=== PATIENT | male | born 1940 | race Caucasian/White ===

== ENCOUNTER 2018-05-09 17:03 | Emergency (ER) | payer MEDICARE, OTHER ==
[~2018-05-09] VITALS: Ht 177.8 cm; Wt 104.3 kg
[~2018-05-09 17:03] MED LIST: HYOS0.1217 PO; PNT40TEC PO
--- OUTSIDE RECORDS SUMMARY | 2018-05-09 17:10 | XMS REPORT | Continuity of Care Document ---
Author Author [facility] Organization [facility] Address Unknown Phone Unavailable Allergies Active Description Code Type Severity Reaction Onset Reported/Identified Relationship to Patient Clinical Status Yes No Known Drug Allergies [id number] Drug Allergy Unknown N/A 11/05/2014 Medications There is no data. Problems Date Dx Coded Attending Type Code Diagnosis Diagnosed By 11/05/2014 CAROLANN ROSE DO Ot 787.3 11/05/2014 CAROLANN ROSE DO Ot 789.00 11/05/2014 CAROLANN ROSE DO Ot 790.5 11/06/2014 PATITO CARRASQUILLO DO Ot 079.99 11/06/2014 PATITO CARRASQUILLO DO Ot 780.60 Procedures There is no data. Results There is no data. Encounters ACCT No. Visit Date/Time Discharge Status Pt. Type Provider Facility Loc./Unit Complaint [id number] 11/05/2014 21:35:00 11/06/2014 00:56:00 DIS Emergency PATITO CARRASQUILLO DO [facility] ER [id number] 11/05/2014 14:48:00 11/05/2014 17:12:00 DIS Emergency CAROLANN ROSE DO [facility] ER
[2018-05-09] MEDS ORDERED: TETANUS,DIPTH,PERTUSS P/F (BOOSTRIX) 0.5 ML VIAL IM ONE (17:30)
--- NOTE | 2018-05-09 17:39 | ED Lower Extremity ---
General Chief Complaint: Lower Extremity Stated Complaint: L FOOT TURNING BLACK AND BLUE Nursing Triage Note: AMB TO ROOM REPORTS 3 DAYS AGO DROPPED APX 50LB PIECE OF METAL ON L FOOT BRUISNG AND SWELLING NOTE. Nursing Sepsis Screen: No Definite Risk Source: patient Exam Limitations: no limitations History of Present Illness Date Seen by Provider: May 09, 2018 Time Seen by Provider: 17:15 Initial Comments Patient is a 78-year-old male who presents to the emergency room with complaints of left foot pain, swelling, bruising. He reports that 3 days ago he dropped a 50 pound beam on his foot and is concerned with the bruising. He also has a healing laceration to his right index finger from 10 days ago that he would like a tetanus shot for. He does not have a primary care provider. He ambulated without difficulty. Onset: other (3 days ago) Severity: mild Pain/Injury Location: left foot Method of Injury: direct blow Allergies and Home Medications Allergies Coded Allergies: No Known Drug Allergies (Unverified , 11/05/14) Patient Home Medication List Home Medication List Reviewed: Yes Review of Systems Constitutional: no symptoms reported, see HPI Musculoskeletal: see HPI, joint pain (left foot) Skin: see HPI, other (brusing to left foot) All Other Systems Reviewed Negative Unless Noted: Yes Past Tkybibv-Lkjlqo-Fgdfxg Hx Past Med/Social Hx: Reviewed Nursing Past Med/Soc Hx Patient Social History Alcohol Use: Denies Use Recreational Drug Use: No Smoking Status: Never a Smoker Recent Foreign Travel: No Contact w/Someone Who Travel: No Recent Infectious Disease Expo: No Past Medical History Surgeries: Yes Adenoidectomy, Tonsillectomy Respiratory: No Cardiac: No Neurological: No Gastrointestinal: No Musculoskeletal: Yes (RIB FRACTURES) Fractures Endocrine: No Cancer: No Psychosocial: No Blood Disorders: No Family Medical History Reviewed Nursing Family Hx Physical Exam Vital Signs Vital Signs - First Documented 05/09/18 17:08 Temp 99.0 Pulse 79 Resp 18 B/P (MAP) 147/81 (103) Pulse Ox 6 O2 Delivery Room Air Capillary Refill : Less Than 3 Seconds Height, Weight, BMI Height: 5'10.00" Weight: 230lbs. oz. 104.874462gj; BMI Method:Stated General Appearance: WD/WN, no apparent distress Neck: non-tender, full range of motion, supple, normal inspection Cardiovascular: normal peripheral pulses, regular rate, rhythm, no edema, no gallop, no JVD, no murmur Respiratory: chest non-tender, lungs clear, normal breath sounds, no respiratory distress, no accessory muscle use Feet: right foot non-tender, right foot normal inspection, right foot normal range of motion, right foot no evidence of injury; left foot ecchymosis (dorsal surface), left foot pain, left foot soft tissue tenderness Neurologic/Tendon: normal sensation, normal motor functions, normal tendon functions, responds to pain, no evidence tendon injury Neurologic/Psychiatric: alert, normal mood/affect, oriented x 3 Skin: normal color, warm/dry normal distal pulses and capillary refill Progress/Results/Core Measures Results/Orders My Orders Orders - TRACEY LIEBERMAN Foot, Left, 3 Views (05/09/18 17:28) Dipht,Pertuss(Acell),Tet Adult (Boostrix (05/09/18 17:30) Medications Given in ED Current Medications Medications Dose Ordered Sig/Laron Route Start Time Stop Time Status Last Admin Dose Admin Diphtheria/ Tetanus/Acell Pertussis 0.5 ml ONCE ONCE IM 05/09/18 17:30 05/09/18 17:31 DC 05/09/18 17:36 0.5 ML Vital Signs/I&O 05/09/18 05/09/18 17:08 18:18 Temp 99.0 Pulse 79 79 Resp 18 18 B/P (MAP) 147/81 (103) 147/81 (103) Pulse Ox 6 6 O2 Delivery Room Air Blood Pressure Mean: 103 Progress Progress Note : Time: 18:07 Progress Note I have seen and evaluated the patient. He also reports that he's been having some nasal congestion and uses Afrin and Vicks vapor rub daily for control. He asked if there is anything else he can use for nasal congestion I informed him that ogwd-mra-kgqcbpu Mucinex may be beneficial. I've informed him of his normal imaging studies. He agrees with plans of care, plans were discharged, return precautions were given. Diagnostic Imaging Diagonstic Imaging: Xray Plain Films/CT/US/NM/MRI: other (foot) Comments NAME: KARIE SMYTH [facility] REC#: [id number] PHYSICIAN: TRACEY LIEBERMAN [facility] CC: TRACEY LIEBERMAN; YARELI LEMUS MD Page 1 of 1 RADIOLOGY REPORT [facility]. [place], [place] CC: TRACEY LIEBERMAN; YARELI LEMUS MD Page 1 of 1 RADIOLOGY REPORT NAME: KARIE SMYTH [facility] REC#: [id number] PT STATUS: DEP ER : 1940 PHYSICIAN: TRACEY LIEBERMAN CLINICAL PHARMACOLOGIST ADMIT DATE: 05/09/18/ER Signed Date of Exam: 05/09/18 FOOT, LEFT, 3 VIEWS INDICATION: Dropped a large piece of steel on foot. Second metacarpal swelling and bruising. EXAMINATION: Left foot 05/09/2018 FINDINGS: Three views of the foot Diffuse soft tissue swelling along the dorsum of the midfoot noted. There is first metatarsophalangeal joint space narrowing and spurring with subchondral cystic change. No dislocations, no fractures. IMPRESSION: Soft tissue abnormality. No acute fractures. Chronic changes. Dictated by: Dictated on workstation # [id number] Dict: 05/09/181753 Trans: 05/09/181834 Interpreted by: YARELI LEMUS MD Electronically signed by: YARELI LEMUS MD 05/09/181834 Reviewed: Reviewed by Me Departure Impression Primary Impression: Contusion of left foot Disposition: 01 HOME, SELF-CARE Condition: Stable/Unchanged Departure-Patient Inst. Decision time for Depature: 18:08 Referrals: NO,LOCAL PHYSICIAN (PCP) Primary Care Physician Patient Instructions: Contusion (DC) Add. Discharge Instructions: Ibuprofen and Tylenol as directed by the bottle for pain relief. Ice to the sore areas at 20 minute intervals. You may use the Afrin, Mucinex, and Vicks VapoRub for nasal congestion relief. Return back to the emergency room for any worsening symptoms or concerns as needed. Follow-up with a regular doctor as needed. All discharge instructions reviewed with patient and/or family. Voiced understanding. TRACEY LIEBERMAN May 09, 2018 17:39
--- NOTE | 2018-05-09 18:03 | Diagnostic Imaging Report ---
INDICATION: Dropped a large piece of steel on foot. Second metacarpal swelling and bruising. EXAMINATION: Left foot 05/09/2018 FINDINGS: Three views of the foot Diffuse soft tissue swelling along the dorsum of the midfoot noted. There is first metatarsophalangeal joint space narrowing and spurring with subchondral cystic change. No dislocations, no fractures. IMPRESSION: Soft tissue abnormality. No acute fractures. Chronic changes. Dictated by: Dictated on workstation # [id number]
[2018-05-09 18:18] VITALS: BP 147/81
== END 2018-05-09 18:24 | disposition home or self-care (01) ==
LOC: EDUNIT# 17:03 → ER 17:05
DX: S90.32XA Contusion of left foot, initial encounter (principal); S61.201D Unspecified open wound of left index finger without damage to nail, subsequent encounter; Z90.89 Acquired absence of other organs; Z23 Encounter for immunization; W20.8XXA Other cause of strike by thrown, projected or falling object, initial encounter; X58.XXXD Exposure to other specified factors, subsequent encounter
CPT/HCPCS: 73630; 90715

== ENCOUNTER → 2022-04-14 | Outpatient (CLI) | payer MEDICARE, OTHER ==
[~2022-04-14] MED LIST changes: +CATHETER FLUSH 10 ML SYR IVP PRN; +REGADENOSON 0.4 MG/5 ML SYR (LEXISCAN) IV ONE
[2022-04-14 12:56] VITALS: BP 166/82
--- NOTE | 2022-04-16 09:35 | STRESS TEST ---
DATE OF SERVICE: 04/14/2022 RESTING AND POST REGADENOSON TECHNETIUM-99M TETROFOSMIN SPECT CT IMAGING ORDERING PHYSICIAN: Dr. Walker. CLINICAL DIAGNOSIS: Coronary artery disease. Baseline images were carried out after injection of 10.3 mCi of technetium-99m Tetrofosmin. This was followed by 0.4 mg regadenoson and 30.1 mCi of technetium-99m Tetrofosmin for stress imaging. The patient noted some shortness of breath following regadenoson infusion, which resolved in a few minutes. Review of images at rest and following stress indicates a small, transient anteroapical perfusion defect. Gated images show normal global left ventricular systolic function with normal regional wall motion. Left ventricular ejection fraction is calculated to be 54%. CONCLUSIONS: 1. The study is suggestive of a small amount of anteroapical ischemia. 2. Normal regional wall motion. 3. Normal global left ventricular systolic function with a calculated ejection fraction of 54%. Job ID: [id number] DocumentID: [id number] Dictated Date: 04/16/2022 09:08:44 Package Checker Date: 04/16/2022 09:34:21 Dictated By: JAIME WALKER MD, MA, FACP, FACC,
== END ==
LOC: CARD 10:00
PROVIDERS: ATTEND Internal Medicine Cardiovascular Disease
DX: I25.10 Atherosclerotic heart disease of native coronary artery without angina pectoris (principal)
CPT/HCPCS: 78452; 93017; A9502; C8929; 93306

== ENCOUNTER → 2022-12-03 | Outpatient (CLI) | payer MEDICARE, OTHER ==
[~2022-12-03] MED LIST changes: -REGADENOSON 0.4 MG/5 ML SYR (LEXISCAN) IV ONE
--- NOTE | 2022-12-03 14:05 | Diagnostic Imaging Report ---
INDICATION: Initial staging prostate carcinoma. Patient was administered 6.1 mCi of F-18 Pylarify in the left forearm and PET imaging was performed from the top of skull to mid thighs. Noncontrast CT was also performed for attenuation correction and anatomic correlation. No prior studies are available for comparison. A physiologic activity within the lacrimal and salivary glands are noted. No mediastinal or hilar uptake is seen. No pulmonary parenchymal uptake is detected. There is physiologic activity in the abdomen and pelvis. No suspicious lymphadenopathy is identified. There are several foci of uptake within the prostate gland. No other suspicious areas of uptake are identified. IMPRESSION: There is several small foci of uptake within the prostate gland which appears enlarged. The study is otherwise unremarkable. Dictated by: Dictated on workstation # [id number]
== END ==
LOC: RAD 09:19
PROVIDERS: ATTEND Radiology Radiation Oncology
DX: C61 Malignant neoplasm of prostate (principal)
CPT/HCPCS: 78815; A9595

== ENCOUNTER 2022-12-09 14:12 | Outpatient (RCR) | payer MEDICARE, OTHER ==
[~2022-12-09 14:12] MED LIST changes: -CATHETER FLUSH 10 ML SYR IVP PRN
[2022-12-09] MEDS ORDERED: LEUPROLIDE 22.5 MG SYRINGE (ELIGARD) SQ SCH (15:00)
== END 2022-12-18 | disposition home or self-care (01) ==
LOC: ONC 14:12
PROVIDERS: ATTEND Radiology Radiation Oncology
DX: C61 Malignant neoplasm of prostate (principal)
CPT/HCPCS: 84153; 84403; G0463; 36415; 96402; 99205

== ENCOUNTER → 2023-03-08 | Outpatient (CLI) | payer MEDICARE, OTHER | LOC: ONC 15:49 | PROVIDERS: ATTEND Internal Medicine Hematology & Oncology | DX: C61 Malignant neoplasm of prostate (principal) | CPT/HCPCS: 36415; 84153 ==

== ENCOUNTER → 2023-03-10 | Outpatient (CLI) | payer MEDICARE, OTHER ==
[~2023-03-10] MED LIST changes: +LEUPROLIDE 22.5 MG SYRINGE (ELIGARD) SQ SCH
== END ==
LOC: ONC 12:57
PROVIDERS: ATTEND Internal Medicine Hematology & Oncology
DX: Z51.11 Encounter for antineoplastic chemotherapy (principal); C61 Malignant neoplasm of prostate; I10 Essential (primary) hypertension; I25.10 Atherosclerotic heart disease of native coronary artery without angina pectoris
CPT/HCPCS: 96402; G0463; 99214

== ENCOUNTER 2023-03-24 05:39 | Outpatient (CLI) | payer MEDICARE, OTHER ==
[~2023-03-24] VITALS: Ht 177.8 cm; Wt 102.5 kg
[~2023-03-24 05:39] MED LIST changes: -LEUPROLIDE 22.5 MG SYRINGE (ELIGARD) SQ SCH
[2023-03-24] MEDS ORDERED: ASPI-808 PO ×2 (10:06)
[2023-03-24] MEDS ORDERED: MTP25TSR PO ×2 (10:06)
[2023-03-24] MEDS ORDERED: LOSA50TA63 PO ×2 (10:06)
[2023-03-24] MEDS ORDERED: LEUP22.56 SQ ×2 (10:06)
[2023-03-24] MEDS ORDERED: MULT-593 PO ×2 (10:06)
[2023-03-24] MEDS ORDERED: TMSL.4C PO ×2 (10:06)
[2023-03-24] MEDS ORDERED: VENL75CA93 PO ×2 (10:06)
== END 2023-03-24 10:06 | disposition home or self-care (01) ==
LOC: PREOP 05:39
PROVIDERS: ATTEND Radiology Radiation Oncology
DX: Z01.818 Encounter for other preprocedural examination (principal)

== ENCOUNTER 2023-03-31 08:26 | Day surgery (SDC) | payer MEDICARE, OTHER ==
[~2023-03-31] VITALS: Ht 177.8 cm; Wt 102.5 kg
[2023-03-31] VITALS (9 sets, daily range): BP systolic 153–175; BP diastolic 82–96
[~2023-03-31 08:26] MED LIST changes: +ASPI-808 PO; +LEUP22.56 SQ; +LOSA50TA63 PO; +MTP25TSR PO; +MULT-593 PO; +TMSL.4C PO; +VENL75CA93 PO
--- NOTE | 2023-03-31 09:16 | Progress Note-Pre Operative ---
Pre-Operative Progress Note Date of Available H&P: Mar 24, 2023 Date H&P Reviewed: Mar 31, 2023 Time H&P Reviewed: 09:13 History & Physical: H&P Reviewed, Patient Examed Changes from last HP N/A Pre-Operative Diagnosis: Prostate cancer cT2a, PSA 50.4, Lupe 6 MAHAMED HERNANDEZ MD Mar 31, 2023 09:16
--- NOTE | 2023-03-31 09:21 | Discharge Inst-Simple/Standard ---
Discharge Inst-Standard Reconcile Patient Problems Problems Reviewed?: Yes Discharge Medications New, Converted or Re-Newed RX: Other (Patient has antibiotic at home.) Patient Instructions/Follow Up Plan of Care/Instructions/FU: Treatment planning ct scan at [facility] cancer [facility] 04/14/23 at 10:00 a.m. Patient given oral contrast and instructed to drink 1/2 bottle at 9:[address] scan simulation. Activity as Tolerated: Yes Discharge Diet: No Restrictions MAHAMED HERNANDEZ MD Mar 31, 2023 09:21
[2023-03-31] MEDS: LACTATED RINGERS 1,000 ML 1,000 ML IV PRN ×2 (09:26→11:50)
[2023-03-31] MEDS ORDERED: SEVOFLURANE (ULTANE) 15 ML INHAL SOLN ONE ×2 (10:11→11:06)
[2023-03-31] MEDS ORDERED: proPOfol INJECTION 200 MG/20 ML VIAL IV ONE (10:11)
[2023-03-31] MEDS ORDERED: fentaNYL INJECTION 100 MCG/2 ML VIAL ONE (10:11)
[2023-03-31] MEDS ORDERED: ONDANSETRON INJECTION 4 MG/2 ML (SDV) ONE (10:11)
[2023-03-31] MEDS ORDERED: LIDOCAINE PF 2% 5 ML VIAL ONE (10:11)
--- NOTE | 2023-03-31 11:29 | Progress Note-Post Operative ---
Post-Operative Progess Note Surgeon (s)/Test Manager (s) Surgeon MAHAMED HERNANDEZ MD Test Manager: N/A Pre-Operative Diagnosis Prostate cancer cT2a, PSA 50.4, Lupe 6 Post-Operative Diagnosis Same as pre-op Procedure & Operative Findings Date of Procedure 03/31/23 Procedure Performed/Findings (1) Placement of fiducial gold seed markers under ultrasound guidance (2) Injection of biodegradable hydrogel prostate-rectal spacer utilizing the Ouroboros Tee system under ultrasound guidance Anesthesia Type General Estimated Blood Loss Estimated blood loss (mL): Minimal Specimens/Packing Specimens Removed N/A Packing: None MAHAMED HERNANDEZ MD Mar 31, 2023 11:29
[2023-03-31] MEDS ORDERED: fentaNYL INJECTION 100 MCG/2 ML VIAL IVP ONE (11:30)
[2023-03-31] MEDS ORDERED: ONDANSETRON INJECTION 4 MG/2 ML (SDV) IVP PRN (11:30)
== END 2023-03-31 13:00 | disposition home or self-care (01) ==
LOC: SDC 08:26
PROVIDERS: ATTEND Radiology Radiation Oncology
DX: C61 Malignant neoplasm of prostate (principal); E66.9 Obesity, unspecified; Z68.32 Body mass index [BMI] 32.0-32.9, adult
CPT/HCPCS: 55874; 55876; 87081; A4648; C1889

== ENCOUNTER 2023-04-14 10:04 | Outpatient (RCR) | payer MEDICARE, OTHER | END 2023-04-20 | disposition home or self-care (01) | LOC: ONC 10:04 | PROVIDERS: ATTEND Radiology Radiation Oncology | DX: Z51.0 Encounter for antineoplastic radiation therapy (principal); C61 Malignant neoplasm of prostate; I10 Essential (primary) hypertension | CPT/HCPCS: 77300; 77301; 77334; 77338 ==

== ENCOUNTER 2023-05-12 13:01 | Emergency (ER) | payer MEDICARE, OTHER ==
[~2023-05-12] VITALS: Ht 177 cm; Wt 100.0 kg
--- NOTE | 2023-05-12 14:47 | ED General ---
General Chief Complaint: Skin/Wound Problems Stated Complaint: POST-RADIATION THERAPY SKIN ISSUE Nursing Triage Note: PT IS GETTING RADIATION 5 DAYS A WEEK FOR PROSTATE CA. CC OF ITCHY SKIN ON THE POSTERIOR RT LEG, BACK AND STOMACH. PT DID HAVE FLUID TAKEN OFF OF RT LUNG ON 05/10. THERAPY [facility] DONE [facility]. DR LINTON AND MIRTHA DID NOT THINK THIS HAD ANYTHING TO DO WITH RADIATION. SWELLING IN LT HAND Source of Information: Patient Exam Limitations: No Limitations History of Present Illness Date Seen by Provider: May 12, 2023 Time Seen by Provider: 14:28 Initial Comments This 83-year-old gentleman presents to the emergency room with concerns about a rash that developed 1 to 2 weeks ago. It is pruritic and hive-like. Lesions appear in a target or horseshoe pattern and are scattered throughout the face, body, and extremities. He has intermittent swelling associated with patches of the rash, especially on the left hand. He is presently receiving treatment for prostate cancer. Dr. Linton is managing his radiation therapy. Dr. Shannon and is his medical oncologist. His primary care provider is Dr. Smith. He was referred to the emergency room from one of the outpatient providers. He denies starting any new medications or having any recent acute illness. He has not tried any antihistamine therapies. Rash appears to have the pattern and clinical course of erythema multiforme. His medications were reviewed during history. Venlafaxine and Flomax have both have listed adverse effects of erythema multiforme. Allergies and Home Medications Allergies Coded Allergies: No Known Drug Allergies (Unverified , 03/24/23) Patient Home Medication List Home Medication List Reviewed: Yes Acyclovir (Acyclovir) 400 Mg Tablet, 400 MG PO BID Prescribed by: MARY GLEASON on 05/12/23 1515 Aspirin (Aspirin) 325 Mg Tablet, 325 MG PO DAILY, (Reported) Entered as Reported by: Debra Bauer on 03/24/23 1006 Famotidine (Pepcid) 20 Mg Tablet, 20 MG PO BID Prescribed by: MARY GLEASON on 05/12/23 1515 Leuprolide Acetate (Eligard) 22.5 Mg (3 Month) Syringe, 22.5 MG SQ EVERY 3 MONTHS, (Reported) Entered as Reported by: Debra Bauer on 03/24/23 1006 Loratadine (Loratadine) 10 Mg Tablet, 10 MG PO DAILY Prescribed by: MARY GLEASON on 05/12/23 1515 Losartan Potassium (Losartan Potassium) 50 Mg Tablet, 50 MG PO DAILY, (Reported) Entered as Reported by: Debra Bauer on 03/24/23 1006 Metoprolol Succinate (Metoprolol Succinate) 25 Mg Tab.er.24h, 25 MG PO HS, (Reported) Entered as Reported by: Debra Bauer on 03/24/23 1006 Multivitamin with Minerals (Multiple Vitamin) 1 Each Tablet, 1 EACH PO DAILY, (Reported) Entered as Reported by: Debra Bauer on 03/24/23 1006 Tamsulosin HCl (Flomax) 0.4 Mg Cap, 0.4 MG PO DAILY, (Reported) Entered as Reported by: Debra Bauer on 03/24/23 100 Venlafaxine HCl (Venlafaxine HCl ER) 75 Mg Cap.er.24h, 75 MG PO HS, (Reported) Entered as Reported by: Debra Bauer on 03/24/23 1006 Review of Systems Review of Systems Constitutional: no symptoms reported EENTM: no symptoms reported Respiratory: no symptoms reported Cardiovascular: no symptoms reported Gastrointestinal: no symptoms reported Genitourinary: see HPI Musculoskeletal: no symptoms reported Skin: see HPI Psychiatric/Neurological: No Symptoms Reported Hematologic/Lymphatic: See HPI Immunological/Allergic: see HPI Past Ezqqydm-Bsayic-Sihnho Hx Patient Social History Tobacco Use?: No Substance use?: No Alcohol Use?: No Immunizations Up To Date Third COVID19 Vaccination Date: YES Seasonal Allergies Seasonal Allergies: Yes Past Medical History Surgery/Hospitalization HX: PROSTATE CA, HTN Surgeries: Yes Adenoidectomy, Tonsillectomy Respiratory: No Currently Using CPAP: No Currently Using BIPAP: No Cardiac: Yes High Cholesterol, Hypertension, Irregular Heartbeat Neurological: No Sexually Transmitted Disease: No Genitourinary: Yes Benign Prostatic Hyperpl Gastrointestinal: No Musculoskeletal: Yes (RIB FRACTURES) Fractures Endocrine: No HEENT: Yes Cataract, Tinnitis Loss of Vision: Denies Hearing Impairment: Hard of Hearing, Bilateral Hearing Aide Cancer: Yes Prostate Did You Recieve Any Treatments: No Psychosocial: No Integumentary: No Blood Disorders: No Adverse Reaction/Blood Tranf: No Physical Exam Vital Signs Vital Signs - First Documented 05/12/23 14:01 Temp 37.0 Pulse 82 Resp 18 B/P (MAP) 44/75 (65) Pulse Ox 99 O2 Delivery Room Air Capillary Refill : Less Than 3 Seconds Height, Weight, BMI Height: 5'10.00" Weight: 230lbs. oz. 104.591546dr; 31.00 BMI Method:Stated General Appearance: No Apparent Distress, WD/WN HEENT: PERRL/EOMI, Normal ENT Inspection Neck: Normal Inspection Respiratory: Lungs Clear, Normal Breath Sounds Cardiovascular: Regular Rate, Rhythm, No Edema, No Murmur Extremity: Normal Inspection Skin: Warm/Dry, Rash (Scattered patchy raised erythematous pruritic rash scattered amongst the face, trunk and extremities. Some patches have a target or horseshoe shape) Progress/Results/Core Measures Suspected Sepsis SIRS Temperature: Pulse: 82 Respiratory Rate: 18 Blood Pressure 44 /75 Mean: 65 Results/Orders My Orders Orders - MARY WILSON MD Loratadine Tablet (Loratadine Tablet) (05/12/23 15:15) Famotidine Tablet (Famotidine Tablet) (05/12/23 15:15) Vital Signs/I&O 05/12/23 05/12/23 14:01 15:27 Temp 37.0 37.0 Pulse 82 82 Resp 18 18 B/P (MAP) 44/75 (65) 44/75 Pulse Ox 99 99 O2 Delivery Room Air Room Air Capillary Refill : Less Than 3 Seconds Blood Pressure Mean: 65 Progress Note : Progress Note Delayed history and physical due to code blue in the ER during his visit. Rash appearance and clinical history seems consistent with erythema multiforme and will be treated accordingly. I have encouraged him to discuss possibly discontinuing venlafaxine and/or Flomax as they may be triggers for erythema multiforme. He was treated with Pepcid and Claritin during his ER visit. See discharge instructions for further discussion. Departure Impression Primary Impression: Erythema multiforme Disposition: HOME, SELF-CARE Condition: Stable Departure-Patient Inst. Decision time for Depature: 15:11 Referrals: IBRAHIMA SMITH DO (PCP/Family) Primary Care Physician Patient Instructions: Erythema multiforme Add. Discharge Instructions: Your rash is most likely erythema multiforme. This rash can be most commonly caused by viral illnesses or medications. You have 2 medications that are known for causing erythema multiforme, tamsulosin (Flomax) and venlafaxine (Effexor). Discuss stopping one or both of these medications with your primary care provider. Call today to set up an appointment with your primary care doctor. Viral illnesses could also cause erythema multiforme. An antiviral called acyclovir is being prescribed for you to help fight potential viral causes. Antihistamines can help reduce the intensity of the rash and help stop the itching. Take Claritin (loratadine) early in the day. If you need further itch relief at night, you may take Benadryl (diphenhydramine) 25 mg at bedtime. Use with caution as Benadryl may cause drowsiness. In addition, use Pepcid (famotidine) which will add to the antihistamine treatment. Return to care if you have worsening symptoms despite following these instructions. All discharge instructions reviewed with patient and/or family. Voiced understanding. Scripts Loratadine (Loratadine) 10 Mg Tablet 10 MG PO DAILY, #30 TAB Prov: MARY WILSON MD 05/12/23 Famotidine (Pepcid) 20 Mg Tablet 20 MG PO BID, #60 TAB Prov: MARY WILSON MD 05/12/23 Acyclovir (Acyclovir) 400 Mg Tablet 400 MG PO BID, #20 TAB Prov: MARY WILSON MD 05/12/23 Copy Copies To 1: LINNEA SHANNON MD Copies To 2: MAHAMED LINTON MD; IBRAHIMA SMITH JOSHUA T MD May 12, 2023 14:47
[2023-05-12] MEDS ORDERED: LORATADINE 10 MG TABLET PO ONE (15:15)
[2023-05-12] MEDS ORDERED: LORA10TA7 PO (15:15)
[2023-05-12] MEDS ORDERED: ACYC400T21 PO (15:15)
[2023-05-12] MEDS ORDERED: FAMOTIDINE 20 MG TABLET PO ONE (15:15)
[2023-05-12] MEDS ORDERED: FAMO-119 PO (15:15)
[2023-05-12 15:27] VITALS: BP 44/75
== END 2023-05-12 15:27 | disposition home or self-care (01) ==
LOC: EDUNIT# 13:01 → ER 13:02
DX: L51.9 Erythema multiforme, unspecified (principal); C61 Malignant neoplasm of prostate; Z79.899 Other long term (current) drug therapy
CPT/HCPCS: 99283

== ENCOUNTER → 2023-05-20 | Outpatient (RCR) | payer MEDICARE, OTHER ==
[~2023-05-20] MED LIST changes: +ACYC400T21 PO; +FAMO-119 PO; +LORA10TA7 PO
== END | disposition home or self-care (01) ==
LOC: ONC 04-21 14:30
PROVIDERS: ATTEND Radiology Radiation Oncology
DX: Z51.0 Encounter for antineoplastic radiation therapy (principal); C61 Malignant neoplasm of prostate; I10 Essential (primary) hypertension
CPT/HCPCS: 77336; 77385